=== PATIENT | male | born 1965 | race Caucasian/White ===

== ENCOUNTER 2018-02-06 11:44 | Outpatient (CLI) | payer BC ==
--- NOTE | 2018-02-06 13:09 | RAD ---
TWO VIEWS LUMBAR SPINE: HISTORY: Psoriatic arthritis. FINDINGS: AP and lateral views of the lumbar spine obtained. Images demonstrate no significant evidence of disk space height loss. Vertebral bodies are unremarka ble. Anterior osteophytes and smaller posterior osteophytes seen involving the entire lumbar spine i nvolving all lumbar vertebrae. NO evidence of end plate irregularity seen. No evidence of vertebral fracture seen. IMPRESSION: Changes of spondylosis in the lumbar spine. No acute fractures or bony lesions seen. POS: [facility]
--- NOTE | 2018-02-06 13:09 | RAD ---
CHEST TWO VIEWSS: 02/06/2018 HISTORY: Psoriatic arthritis. FINDINGS: Two views of the chest demonstrate the lungs to be well aerated. No evidence of active intrathoracic disease is seen. No evidence of effusions, pneumonia, or pneumothorax is seen. No evidence of inte rstitial changes seen. No evidence of effusion seen. IMPRESSION: Normal posterior-anterior and lateral views of the chest. POS: [facility]
== END 2018-02-06 11:45 | disposition home or self-care (01) ==
LOC: BICRAD 11:44
PROVIDERS: ATTEND Internal Medicine Rheumatology
DX: L40.50 Arthropathic psoriasis, unspecified (principal)
CPT/HCPCS: 71046; 72100